=== PATIENT | female | born 1995 | race American Indian/Alaskan Native ===

== ENCOUNTER 2018-03-05 09:10 | Emergency (ER) | payer OTHER ==
[2018-03-05 09:32] VITALS: BP 140/91
[2018-03-05] MEDS ORDERED: TYLENOL #3 PO ONE (11:38)
[2018-03-05] MEDS ORDERED: CLEOCIN PO ONE (11:38)
--- NOTE | 2018-03-05 11:40 | Emergency Department Report ---
HPI - General Chief Complaint: Dental/Oral Time Seen by Provider: 03/05/18 11:26 - [facility] HPI: The patient is a 22-year-old female who presents to ED complaining of 7/10 pain in the left side of her mouth that she noticed yesterday morning. Patient states that swelling got worse in the past day. She states the pain is aggravated by putting and closing mouth. She discussed Patient states the pain is alleviated initially with pain medication but comes back. Patient states that it radiates towards ear. Patient describes a as a throbbing, pressure-like sensation. Patient states otherwise well and has no other complaints. Patient has had no fevers and no chills. No chest pain, no shortness of breath. No abdominal pain. No shortness of breath or recent trauma to the face. ED Past Medical Hx - Past Medical History Previous Medical History?: No - Surgical History Past Surgical History?: Yes Additional Surgical History: T&A, ankle sx - Social History Smoking Status: Current Every Day Smoker Substance Use Type: None - Medications Home Medications: Home Medications Medication Instructions Recorded Confirmed Last Taken Type Acetaminophen/Codeine [Tylenol 1 tab PO TID #10 tablet 03/05/18 Unknown Rx /Codeine # 3 tab] Clindamycin [Clindamycin CAP] 300 mg PO BID #20 capsule 03/05/18 Unknown Rx ED Review of Systems ROS: Stated complaint: MOUTH SWOLLEN Other details as noted in HPI Constitutional: denies: chills, fever Eyes: denies: eye pain, eye discharge, vision change ENT: denies: ear pain, throat pain Respiratory: denies: cough, shortness of breath, wheezing Cardiovascular: denies: chest pain, palpitations Endocrine: no symptoms reported Gastrointestinal: denies: abdominal pain, nausea, diarrhea Genitourinary: denies: urgency, dysuria, discharge Musculoskeletal: denies: back pain, joint swelling, arthralgia Skin: denies: rash, lesions Neurological: denies: headache, weakness, paresthesias Psychiatric: denies: anxiety, depression Hematological/Lymphatic: denies: easy bleeding, easy bruising Physical Exam - Physical Exam Vital Signs: Vital Signs 03/05/18 09:29 Temperature 98.7 F Pulse Rate 108 H Respiratory 16 Rate Blood Pressure 140/91 O2 Sat by Pulse 100 Oximetry Physical Exam: GENERAL: Alert and oriented x3, no apparent distress, Normal Gait, atraumatic. HEAD: Head is normocephalic and a-traumatic. EARS: symetrical, atraumatic, non tender, ear canal clear and moderate cerumen, tympanic membrance non inflamed. gross auditory nml bilaterally. NOSE: Nose symetrical, Nontender,Nares appeared normal. MOUTH:Mouth is well hydrated and without lesions. Tonsils nonerythematous or swollen, Uvula midline, Tongue not elevated. Mucous membranes are moist. Posterior pharynx clear, no exudate or lesions. Patent airways. Left sided jaw swelling, tooth #20 tender to palpation, no gingival enlargement, no bleeding, no discharge NECK: Supple. Non edematous, No lymphadenopathy or thyromegaly. No C-spine tenderness LUNGS: Symetrical with respiration, No wheezing, no rales or crackles, CTAB. HEART: S1, S2 present, regular rate and rhythm without murmur, no rubs, no gallops. Non tender to palpation SKIN: Warm and dry, No lesions, No ulceration or induration present. ED Course Vital Signs 03/05/18 09:29 Temperature 98.7 F Pulse Rate 108 H Respiratory 16 Rate Blood Pressure 140/91 O2 Sat by Pulse 100 Oximetry ED Medical Decision Making - Medical Decision Making 22-year-old female who presents with left-sided jaw pain/swelling secondary to odontogenic caries ED course: Patient received clindamycin 300 mg, one tablet of Tylenol No. 3. Based upon history and physical examination, pain is a result of an infection of tooth number 20 and that the pain. Pt has no evidence of acute impending airway compromise. At this point, patient will be discharged home on some antibiotics and pain trial, she will do well with an outpatient course of antibiotics. Follow up with the Dental Clinic as referred Vital signs are normal patient is in no acute distress. Pt had an effect uneventful ED stay Critical care attestation.: If time is entered above; I have spent that time in minutes in the direct care of this critically ill patient, excluding procedure time. ED Disposition Clinical Impression: Dental infection, Pain due to dental caries Disposition: TO HOME OR SELFCARE Is pt being admited?: No Does the pt Need Aspirin: No Condition: Stable Instructions: Toothache (ED), Dental Caries (ED), Dental Abscess (ED) Additional Instructions: Make sure to follow up with the dentist as discussed. Take all your medications as you've been prescribed. If you have any worsening symptoms or develop new symptoms please return to ED immediately. Prescriptions: Acetaminophen/Codeine [Tylenol /Codeine # 3 tab] 1 tab PO TID #10 tablet Clindamycin [Clindamycin CAP] 300 mg PO BID #20 capsule Referrals: PRIMARY CARE, [Primary Care Provider] - 3-5 Days [facility] [Outside] - 3-5 Days [facility] [Outside] - 3-5 Days Forms: Accompanied Note, Work/School Release Form(ED) Time of Disposition: 11:48
== END 2018-03-05 12:07 | disposition home or self-care (01) ==
LOC: ED 09:10
DX: K04.7 Periapical abscess without sinus (principal); F17.200 Nicotine dependence, unspecified, uncomplicated
CPT/HCPCS: 99282

== ENCOUNTER 2019-05-09 12:52 | Emergency (ER) | payer SELFPAY ==
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
[2019-05-09 15:40] VITALS: BP 130/64
== END 2019-05-09 15:22 | disposition home or self-care (01) ==
LOC: ED 12:52
DX: M79.18 Myalgia, other site (principal); Z88.0 Allergy status to penicillin
CPT/HCPCS: 99282